=== PATIENT | male | born 1975 | race Caucasian/White ===

== ENCOUNTER 2017-05-07 09:06 | Emergency (ER) | payer SELFPAY ==
[~2017-05-07] VITALS: Ht 190.5 cm; Wt 108.9 kg
[~2017-05-07 09:06] MED LIST: AMIT-108 PO; CEP500 PO; IBUP-1618 PO; IBUP-56 PO; LEVO500T83 PO; LOR5/325 PO; ONDA4TAB PO; OXYC-865 PO; PER PO
[2017-05-07] MEDS ORDERED: ONDANSETRON 4 MG/2 ML VIAL IVP ONE (09:10)
[2017-05-07] MEDS ORDERED: KETOROLAC 30 MG/ML VIAL IVP ONE (09:10)
--- NOTE | 2017-05-07 09:11 | ER Report ---
History and Physical Time Seen By MD: 09:10 HPI/ROS CHIEF COMPLAINT: Right-sided flank pain HISTORY OF PRESENT ILLNESS: Patient is 41-year-old male who presents to department with some right-sided flank pain. This is been fairly prosodic over the past 2 months usually is worse with getting up or range of motion. The pain over the past few days and become more constant and is now having some radiation to the right groin. Patient has a prior history of kidney stones about 20 years ago. He was also on the right side. Patient does report nausea but no vomiting. Denies fevers or chills. Notes decreased urinary frequency. Denies dysuria or hematuria REVIEW OF SYSTEMS: Constitutional: No fever, no chills. Eyes: No discharge. ENT: No sore throat. Cardiovascular: No chest pain, no palpitations. Respiratory: No cough, no shortness of breath. Gastrointestinal: No abdominal pain, no vomiting. Right-sided flank pain Genitourinary: No hematuria. Musculoskeletal: No back pain. Right-sided back pain Skin: No rashes. Neurological: No headache. Allergies: Coded Allergies: No Known Drug Allergies (Verified , 05/07/17) Home Meds Active Scripts Methocarbamol (ROBAXIN-750) 750 Mg Tablet, 1500 MG PO TID Y for MUSCLE SPASMS, # 20 TAB 0 Refills Prov:GENO RAMÍREZ MD 05/07/17 Hydrocodone Bit/Acetaminophen (HYDROCODON-ACETAMINOPHEN 5-325) 1 Each Tablet, 1 EACH PO Q4-6H Y for PAIN, #12 TAB 0 Refills TAKE ONE TABLET BY MOUTH EVERY 4-6 HOURS NEEDED FOR PAIN Prov:GENO RAMÍREZ MD 05/07/17 Discontinued Reported Medications Ibuprofen (IBUPROFEN) 200 Mg Tablet, 1 TAB PO TID Y for PAIN 04/04/15 Discontinued Scripts Hydrocodone Bit/Acetaminophen (HYDROCODON-ACETAMINOPHEN 5-325) 1 Each Tablet, 1 EACH PO Q4-6H Y for PAIN, #12 TAB 0 Refills TAKE ONE TABLET BY MOUTH EVERY 4-6 HOURS NEEDED FOR PAIN Prov:RAINER TURCIOS MD 05/15/15 Oxycodone Hcl/Acetaminophen (PERCOCET 5-325 MG TABLET) 1 Each Tablet, 1 EACH PO Q4H Y for PAIN, #20 TAB 0 Refills Prov:RAINER TURCIOS MD 04/04/15 Levofloxacin 500 Mg Tab (LEVOFLOXACIN 500 MG TAB) 500 Mg Tablet, 500 MG PO QDAY , #10 TAB 0 Refills Prov:RAINER TURCIOS MD 04/04/15 Past Medical/Surgical History Past medical history for kidney stone and recurrent urinary tract infections. Hx Smoking: Yes Smoking Status: Current: Every Day Smoker Hx Substance Use Disorder: No Hx Alcohol Use: Yes (OCC) Constitutional Vital Sign - Last 24 Hours 05/07/17 05/07/17 09:11 10:52 Temp 98.9 Pulse 88 66 Resp 18 B/P (MAP) 163/114 142/93 (109) Pulse Ox 96 94 O2 Delivery Room Air Room Air Physical Exam General Appearance: The patient is alert, has no immediate need for airway protection and no current signs of toxicity. Eyes: Pupils equal and round no injection. Respiratory: Chest is non tender, lungs are clear to auscultation. Cardiac: regular rate and rhythm Gastrointestinal: Abdomen is soft and non tender, no masses, bowel sounds normal. Patient has reproducible right paraspinal muscle tenderness. Musculoskeletal: Neck: Neck is supple and non tendPatient has reproducible right paraspinal muscle tenderness. Extremities have full range of motion and are non tender. Skin: No rashes or lesions. Medical Decision Making Data Points Result Diagram: 05/07/17 0918 05/07/17 0918 Laboratory Hematology Test 05/07/17 09:18 05/07/17 09:23 Red Blood Count 5.90 M/uL (4.00-5.60) Mean Corpuscular Volume 81.6 fL (80.0-96.0) Mean Corpuscular Hemoglobin 27.6 pg (26.0-33.0) Mean Corpuscular Hemoglobin Concent 33.8 g/dL (32.0-36.0) Red Cell Distribution Width 13.4 % (11.5-14.5) Mean Platelet Volume 7.7 fL (7.2-11.1) Neutrophils (%) (Auto) 63.0 % (39.4-72.5) Lymphocytes (%) (Auto) 26.3 % (17.6-49.6) Monocytes (%) (Auto) 6.5 % (4.1-12.4) Eosinophils (%) (Auto) 4.0 % (0.4-6.7) Basophils (%) (Auto) 0.2 % (0.3-1.4) Nucleated RBC Relative Count (auto) 0.1 /100WBC Neutrophils # (Auto) 3.9 K/uL (2.0-7.4) Lymphocytes # (Auto) 1.6 K/uL (1.3-3.6) Monocytes # (Auto) 0.4 K/uL (0.3-1.0) Eosinophils # (Auto) 0.3 K/uL (0.0-0.5) Basophils # (Auto) 0.0 K/uL (0.0-0.1) Nucleated RBC Absolute Count (auto) 0.00 K/uL Sodium Level 138 mmol/L (137-145) Potassium Level 3.9 mmol/L (3.5-5.0) Chloride Level 103 mmol/L (98-107) Carbon Dioxide Level 28 mmol/L (22-30) Blood Urea Nitrogen 13 mg/dl (9-21) Creatinine 0.80 mg/dl (0.66-1.25) Glomerular Filtration Rate Calc > 60.0 Random Glucose 83 mg/dl (75-110) Calcium Level 8.9 mg/dl (8.4-10.2) Total Bilirubin 0.5 mg/dl (0.2-1.3) Aspartate Amino Transf (AST/SGOT) 37 U/L (0-35) Alanine Aminotransferase (ALT/SGPT) 55 U/L (0-56) Alkaline Phosphatase 74 U/L (0-126) Total Protein 7.1 gm/dl (6.3-8.2) Albumin 4.3 g/dl (3.5-5.0) Lipase 77 U/L (23-300) Urine Color Straw Urine Clarity Clear Urine pH 6.0 pH (4.8-9.5) Urine Specific [place] 1.004 Urine Protein Negative mg/dL (NEGATIVE) Urine Glucose (UA) Negative mg/dL (NEGATIVE) Urine Ketones Negative mg/dL (NEGATIVE) Urine Blood Negative (NEGATIVE) Urine Nitrite Negative (NEGATIVE) Urine Bilirubin Negative (NEGATIVE) Urine Urobilinogen Negative mg/dL (0.2-1.9) Urine Leukocyte Esterase Negative (NEGATIVE) Urine RBC None /HPF (0-2/HPF) Urine WBC None /HPF (0-5/HPF) Urine Squamous Epithelial Cells None /LPF (</=FEW) Urine Bacteria Negative /HPF (NONE-FEW) Urine Mucus None /HPF (NONE-FEW) Chemistry Test 05/07/17 09:18 05/07/17 09:23 White Blood Count 6.3 k/uL (4.5-11.0) Red Blood Count 5.90 M/uL (4.00-5.60) Hemoglobin 16.3 g/dL (14.0-18.0) Hematocrit 48.2 % (42.0-52.0) Mean Corpuscular Volume 81.6 fL (80.0-96.0) Mean Corpuscular Hemoglobin 27.6 pg (26.0-33.0) Mean Corpuscular Hemoglobin Concent 33.8 g/dL (32.0-36.0) Red Cell Distribution Width 13.4 % (11.5-14.5) Platelet Count 190 K/uL (150-450) Mean Platelet Volume 7.7 fL (7.2-11.1) Neutrophils (%) (Auto) 63.0 % (39.4-72.5) Lymphocytes (%) (Auto) 26.3 % (17.6-49.6) Monocytes (%) (Auto) 6.5 % (4.1-12.4) Eosinophils (%) (Auto) 4.0 % (0.4-6.7) Basophils (%) (Auto) 0.2 % (0.3-1.4) Nucleated RBC Relative Count (auto) 0.1 /100WBC Neutrophils # (Auto) 3.9 K/uL (2.0-7.4) Lymphocytes # (Auto) 1.6 K/uL (1.3-3.6) Monocytes # (Auto) 0.4 K/uL (0.3-1.0) Eosinophils # (Auto) 0.3 K/uL (0.0-0.5) Basophils # (Auto) 0.0 K/uL (0.0-0.1) Nucleated RBC Absolute Count (auto) 0.00 K/uL Glomerular Filtration Rate Calc > 60.0 Calcium Level 8.9 mg/dl (8.4-10.2) Total Bilirubin 0.5 mg/dl (0.2-1.3) Aspartate Amino Transf (AST/SGOT) 37 U/L (0-35) Alanine Aminotransferase (ALT/SGPT) 55 U/L (0-56) Alkaline Phosphatase 74 U/L (0-126) Total Protein 7.1 gm/dl (6.3-8.2) Albumin 4.3 g/dl (3.5-5.0) Lipase 77 U/L (23-300) Urine Color Straw Urine Clarity Clear Urine pH 6.0 pH (4.8-9.5) Urine Specific [place] 1.004 Urine Protein Negative mg/dL (NEGATIVE) Urine Glucose (UA) Negative mg/dL (NEGATIVE) Urine Ketones Negative mg/dL (NEGATIVE) Urine Blood Negative (NEGATIVE) Urine Nitrite Negative (NEGATIVE) Urine Bilirubin Negative (NEGATIVE) Urine Urobilinogen Negative mg/dL (0.2-1.9) Urine Leukocyte Esterase Negative (NEGATIVE) Urine RBC None /HPF (0-2/HPF) Urine WBC None /HPF (0-5/HPF) Urine Squamous Epithelial Cells None /LPF (</=FEW) Urine Bacteria Negative /HPF (NONE-FEW) Urine Mucus None /HPF (NONE-FEW) Urinalysis Test 05/07/17 09:23 Urine Color Straw Urine Clarity Clear Urine pH 6.0 pH (4.8-9.5) Urine Specific [place] 1.004 Urine Protein Negative mg/dL (NEGATIVE) Urine Glucose (UA) Negative mg/dL (NEGATIVE) Urine Ketones Negative mg/dL (NEGATIVE) Urine Blood Negative (NEGATIVE) Urine Nitrite Negative (NEGATIVE) Urine Bilirubin Negative (NEGATIVE) Urine Urobilinogen Negative mg/dL (0.2-1.9) Urine Leukocyte Esterase Negative (NEGATIVE) Urine RBC None /HPF (0-2/HPF) Urine WBC None /HPF (0-5/HPF) Urine Squamous Epithelial Cells None /LPF (</=FEW) Urine Bacteria Negative /HPF (NONE-FEW) Urine Mucus None /HPF (NONE-FEW) EKG/Imaging Imaging FACILITY: [facility] - [place] PATIENT NAME: Ruddy Ramirez : 1975 MR: [id number] V: [id number] EXAM DATE: ORDERING PHYSICIAN: GENO RAMÍREZ TECHNOLOGIST: Location: [facility] [place] Patient: Ruddy Ramirez : 1975 Visit/Account:[id number] Date of Sevice: 05/07/2017 ABDOMEN/PELVIS W/O CONTRAST HISTORY: r flank pain TECHNIQUE: Axial images acquired through the abdomen/pelvis. Coronal and sagittal reformatting also performed. No IV contrast administered. Dose Lowering Technique One of the following dose optimization techniques was utilized in the performance of this exam: Automated exposure control; adjustment of the mA and/ or kV according to the patient's size; or use of an iterative reconstruction technique. Specific details can be referenced in the facility's radiology CT exam operational policy. COMPARISON: None. FINDINGS: Visualized lung bases: Mild dependent changes are seen in the lower lung justice. Hepatobiliary: Negative. Spleen: Negative. Adrenals: Negative. Pancreas: Negative. Kidneys ureters and bladder: Negative. Genitalia: Negative. GI: The appendix is visualized and does not appear inflamed. There is no evidence of bowel wall thickening or bowel obstruction. Vessels/spaces/nodes: Negative Bones/soft tissues: There are mild to moderate spondylotic changes in the thoracal lumbar spine. There are also mild to moderate degenerative changes of the hip joints Additional findings: None pertinent. IMPRESSION: No demonstration of urolithiasis, hydronephrosis or hydroureter The appendix does not appear inflamed Incidentally noted are mild to moderate spondylotic changes of the thoracal lumbar spine and hip joints. Report Dictated By: Sadie Rivas MD at 05/07/2017 10:26 AM Report E-Signed By: Sadie Rivas MD at 05/07/2017 10:32 AM WSN:[email or web address] ED Course/Re-evaluation ED Course Bedside ultrasound reveals no evidence of right-sided hydronephrosis. Plan at this time will be to obtain CBC electrolytes urinalysis urine culture and we will obtain CT of the abdomen and pelvis without contrast Decision to Disposition Date: May 07, 2017 Decision to Disposition Time: 13:30 Depart Departure Latest Vital Signs Vital Signs Date Time Temp Pulse Resp B/P (MAP) Pulse Ox O2 Delivery O2 Flow Rate FiO2 05/07/17 10:52 66 142/93 (109) 94 Room Air 05/07/17 09:11 98.9 18 Impression: Primary Impression: Right-sided back pain Condition: Improved Disposition: HOME OR SELF-CARE New Scripts Methocarbamol (ROBAXIN-750) 750 Mg Tablet 1500 MG PO TID Y for MUSCLE SPASMS, #20 TAB 0 Refills Prov: GENO RAMÍREZ MD 05/07/17 Hydrocodone Bit/Acetaminophen (HYDROCODON-ACETAMINOPHEN 5-325) 1 Each Tablet 1 EACH PO Q4-6H Y for PAIN, #12 TAB 0 Refills TAKE ONE TABLET BY MOUTH EVERY 4-6 HOURS NEEDED FOR PAIN Prov: GENO RAMÍREZ MD 05/07/17 Departure Forms: ER Transition Record, Medications Reconciliation, Off Work/ School Form, School or Work Release?: Work Number of days to be released: 1 Patient Portal Information Patient Instructions: Acute Low Back Pain (ED) Problem Qualifiers Primary Impression: Right-sided back pain Back pain location: low back pain Chronicity: acute Sciatica presence: without sciatica Qualified Codes: M54.5 - Low back pain GENO RAMÍREZ MD May 07, 2017 09:11
[2017-05-07 09:29] LABS: PLATELET COUNT, AUTOMATED 190 K/uL (150-450)
[2017-05-07] MEDS ORDERED: KETOROLAC 15 MG/ML VIAL IVP ONE (10:35)
--- NOTE | 2017-05-07 10:36 | RADIOLOGY IMAGING REPORT ---
FACILITY: [facility] - [place] PATIENT NAME: Ruddy Ramirez : 1975 MR: [id number] V: [id number] EXAM DATE: ORDERING PHYSICIAN: GENO RAMÍREZ TECHNOLOGIST: Location: [facility] - [place] Patient: Ruddy Ramirez : 1975 Visit/Account:[id number] Date of Sevice: 05/07/2017 ABDOMEN/PELVIS W/O CONTRAST HISTORY: r flank pain TECHNIQUE: Axial images acquired through the abdomen/pelvis. Coronal and sagittal reformatting also performed. No IV contrast administered. Dose Lowering Technique One of the following dose optimization techniques was utilized in the performance of this exam: Autom ated exposure control; adjustment of the mA and/or kV according to the patient's size; or use of an i terative reconstruction technique. Specific details can be referenced in the facility's radiology C T exam operational policy. COMPARISON: None. FINDINGS: Visualized lung bases: Mild dependent changes are seen in the lower lung justice. Hepatobiliary: Negative. Spleen: Negative. Adrenals: Negative. Pancreas: Negative. Kidneys ureters and bladder: Negative. Genitalia: Negative. GI: The appendix is visualized and does not appear inflamed. There is no evidence of bowel wall thi ckening or bowel obstruction. Vessels/spaces/nodes: Negative Bones/soft tissues: There are mild to moderate spondylotic changes in the thoracal lumbar spine. Th ere are also mild to moderate degenerative changes of the hip joints Additional findings: None pertinent. IMPRESSION: No demonstration of urolithiasis, hydronephrosis or hydroureter The appendix does not appear inflamed Incidentally noted are mild to moderate spondylotic changes of the thoracal lumbar spine and hip join ts. Report Dictated By: Sadie Rivas MD at 05/07/2017 10:26 AM Report E-Signed By: Sadie Rivas MD at 05/07/2017 10:32 AM WSN:[email or web address]
[2017-05-07] MEDS ORDERED: LOR5/325 PO (10:46)
[2017-05-07] MEDS ORDERED: METH-543 PO (10:46)
[2017-05-07 10:52] VITALS: BP 142/93
== END 2017-05-07 10:54 | disposition home or self-care (01) ==
LOC: ER 09:12
DX: M54.9 Dorsalgia, unspecified (principal)
CPT/HCPCS: 74176; 81001; 83690; 85025; 87088; 96374; 96375; 96376; 99284; J1885; J2405; 82040; 82247; 82310; 82374; 82435; 82565; 82947; 84075; 84132; 84155; 84295; 84450; 84460; 84520

== ENCOUNTER → 2017-12-23 | Outpatient (CLI) | payer OTHER ==
[~2017-12-23] MED LIST changes: +METH-543 PO
--- NOTE | 2017-12-23 15:08 | RADIOLOGY IMAGING REPORT ---
FACILITY: [facility] PATIENT NAME: Ruddy Ramirez : 1975 MR: [id number] V: [id number] EXAM DATE: ORDERING PHYSICIAN: PAULA CARRILLO TECHNOLOGIST: Location: [facility] Patient: Ruddy Ramirez : 1975 Visit/Account:[id number] Date of Sevice: 12/23/2017 LUMBAR SPINE 2 OR 3 VIEW History: Low back pain. Comparison study: None. Findings: The lumbar spine has normal lordotic curvature. There is no fracture, spondylolisthesis or spondylolysis. There are rudimentary ribs at L1 on both sides. Discogenic degenerative changes are manifest as loss of disc space height. There are also changes of spondylosis throughout the lumbar spine. The sacroiliac joints are unremarkable. IMPRESSION: 1. No fracture or spondylolisthesis. 2. 5 nonrib-bearing lumbar vertebral bodies with rudimentary ribs at L1. 3. Mild findings of discogenic degenerative change with spondylosis throughout the lumbar spine. Report Dictated By: Ptaric Horner MD at 12/23/2017 3:04 PM Report E-Signed By: Patric Horner MD at 12/23/2017 3:05 PM WSN:[id number]
== END ==
LOC: RAD 10:36
PROVIDERS: ATTEND Family Medicine
DX: M51.36 Other intervertebral disc degeneration, lumbar region (principal)
CPT/HCPCS: 72100

== ENCOUNTER → 2018-04-01 | Outpatient (CLI) | payer OTHER ==
[2018-04-01 08:43] LABS: LDL CHOLESTEROL 100 mg/dl
== END ==
LOC: LAB 07:53
PROVIDERS: ATTEND Family Medicine
DX: R78.5 Finding of other psychotropic drug in blood (principal); R73.01 Impaired fasting glucose
CPT/HCPCS: 36415; 82040; 82247; 82310; 82374; 82435; 82465; 82565; 82947; 83036; 83718; 84075; 84132; 84155; 84270; 84295; 84403; 84450; 84460; 84478; 84520; 85027

== ENCOUNTER → 2018-08-08 | Outpatient (CLI) | payer OTHER ==
[2018-08-08 08:20] LABS: LDL CHOLESTEROL 91 mg/dl
== END ==
LOC: LAB 06:38
PROVIDERS: ATTEND Family Medicine
DX: E78.5 Hyperlipidemia, unspecified (principal); E29.1 Testicular hypofunction; R73.01 Impaired fasting glucose; E55.9 Vitamin D deficiency, unspecified
CPT/HCPCS: 36415; 82040; 82247; 82306; 82310; 82374; 82435; 82465; 82565; 82947; 83036; 83718; 84075; 84132; 84155; 84270; 84295; 84403; 84450; 84460; 84478; 84520; 85027

== ENCOUNTER → 2018-11-20 | Outpatient (CLI) | payer OTHER ==
[2018-11-20 07:40] LABS: LDL CHOLESTEROL 84 mg/dl
== END ==
LOC: LAB 06:57
PROVIDERS: ATTEND Family Medicine
DX: Z01.812 Encounter for preprocedural laboratory examination (principal)
CPT/HCPCS: 36415; 82040; 82247; 82310; 82374; 82435; 82465; 82565; 82947; 83036; 83718; 84075; 84132; 84153; 84155; 84270; 84295; 84403; 84443; 84450; 84460; 84478; 84520; 85027